=== PATIENT | male | born 1945 | race Caucasian/White ===

== ENCOUNTER 2016-09-20 12:32 | Inpatient (IN) | payer MEDICARE, OTHER ==
--- NOTE | ~2016-09-20 | CN ---
Consultation Report [facility] [address] [place] [place]. [address] NAME: ELVIA NO : 44 STATUS : ADM IN PAT#: [id number] AGE: 71 ADM/REG DATE : 09/20/16 MR#: [id number] REPORT SERV DATE: 09/21/16 DICTATED BY: OMAR DUGAN DATE: 09/21/16 REPORT STATUS : Draft TRANSCRIBED BY: MODJoey DATE: 09/21/16 GI CONSULTATION DATE OF CONSULTATION: 09/21/2016 REASON FOR CONSULTATION: Evaluation and management of nausea, vomiting, and diarrhea. HISTORY OF PRESENT ILLNESS: Mr. No is a very pleasant, 71-year-old, male patient, who is known to Dr. David Spaulding in the outpatient setting, who presented on the with a chief complaint of nausea, vomiting, and diarrhea. He has had this similar pattern multiple times here at [facility]. He was hospitalized in 04/2016 twice for this, as well as 03/2016, as well as 07/2015, as well as 03/2015. He has these episodes where he has nausea and vomiting, which is acute in onset as well as diarrhea. He becomes hypovolemic and hypotensive, comes into the hospital, gets IV fluids. Diarrhea stops. He is able to eat and tolerate. He goes home. He feels fine. Then, it recurs again. He has had a very extensive GI workup. He has had an EGD in 05/2016 with findings of Lujan's esophagus with no dysplasia on biopsies. His last colonoscopy was in 07/2015, completely normal exam. Microscopic biopsies were negative for any colitis. He has had a mesenteric ultrasound. He has had a small-bowel followthrough. He has had KUBs. He has had multiple CT scans. CT scan on the was nondiagnostic. He came in with a mildly elevated lactate at 2.7. His white count was normal at 8.5. Stool studies have been sent for Giardia and Cryptosporidium. Cultures and sensitivities are pending. Giardia and Cryptosporidium were negative. At present, he feels fine. He is going to the floor. He has been able to tolerate a clear-liquid diet. He has a history of adrenal insufficiency, on chronic replacement. At present, I have discussed with the patient. I am unsure of what else to offer from a GI perspective. We will complete stool studies for ova parasites as well as C. diff and WBCs, advance his diet, and follow his symptoms. PAST MEDICAL HISTORY: Positive for recurrent nausea, vomiting and diarrhea; prostate cancer; diabetes; Lujan's esophagus; COPD; GERD; obstructive sleep apnea; pacemaker placement; atrial fibrillation; cardiac ablation; chronic Eliquis; BPH; thrombocytopenia; rheumatoid arthritis, on chronic Orencia and prednisone; coronary artery disease, status post stenting; fibromyalgia; leg cellulitis; pneumonia; ischemic colitis with a history of partial colectomy; nephrolithiasis; fatty liver disease; compression fractures; left pleural effusion with a history of chest tube. SURGICAL HISTORY: Pacemaker, colectomy, pericardial window, cholecystectomy, knee surgery, and obstructive sleep apnea. ALLERGIES: TO SULFA AND ATIVAN. HOME MEDICATIONS: Eliquis, Soma, Lomotil, Lasix, [place], Creon, Prilosec, Zofran, potassium, prednisone, Lyrica, and Betapace. Consultation Report [address] [address] NAME: ELVIA NO : 44 STATUS : ADM IN [facility]#: [id number] AGE: 71 ADM/REG DATE : 09/20/16 MR#: [id number] REPORT SERV DATE: 09/21/16 DICTATED BY: OMAR DUGAN DATE: 09/21/16 REPORT STATUS : Draft TRANSCRIBED BY: JANIE DATE: 09/21/16 REVIEW OF SYSTEMS: A 10-point review of systems has been obtained with pertinent positives being addressed in the history of present illness. PERTINENT LABORATORY DATA: Procalcitonin was 14.14, on admission it was 20.81. Sodium 143, potassium 4.5, BUN 29, creatinine 0.96. Total bilirubin is 1.3, alkaline phosphatase is 62, ALT 22, AST 12, lipase 52. White blood cell count 10.2, hemoglobin 12.4, hematocrit 36.9, platelet count 88. PHYSICAL EXAMINATION: VITAL SIGNS: Temperature is 97.4, pulse 68, respirations 32, blood pressure of 124/78. NEURO: Reveals an alert, male, sitting up on the bedside with no focal deficits. GENERAL: Cooperative, no apparent distress. Awake, alert, and oriented x3. HEAD, EARS, EYES, NOSE, AND THROAT: Anicteric. Pupils are equal, round, and reactive to light and accommodation. Normocephalic and atraumatic. NECK: No JVD. No palpable nodes. LUNGS: Clear anteriorly. Normal respiratory effort exhibited. Equal expansion. CARDIOVASCULAR SYSTEM: Irregular rate and rhythm. ABDOMEN: Soft and round. Really very minimal tenderness throughout, without rebound or guarding. EXTREMITIES: No edema. Normal distal pulses. SKIN: Warm, dry, and intact. ASSESSMENT/PLAN: 1. Recurrent nausea, vomiting, and diarrhea. 2. Hypokalemia with dehydration. 3. Chronic atrial fibrillation, on Eliquis. 4. Lactic acidosis. 5. Type 2 diabetes. PLAN: 1. We will complete stool studies of C. diff, ova parasites, and WBCs. 2. Advance diet as tolerated. 3. We will discuss with Dr. Espinoza any other recommendations at present as a complete GI workup has been obtained. We will follow. TIMOTHY/JANIE Omar KENNETH Mora / [id number] Consultation Report [address] [address] NAME: ELVIA NO : 44 STATUS : ADM IN [facility]#: [id number] AGE: 71 ADM/REG DATE : 09/20/16 MR#: [id number] REPORT SERV DATE: 09/21/16 DICTATED BY: OMAR DUGAN DATE: 09/21/16 REPORT STATUS : Draft TRANSCRIBED BY: MODL DATE: 09/21/16 CC: Tequila Montana MD
--- NOTE | ~2016-09-20 | HP ---
History And Physical [id number] [place]. [address] NAME: ELVIA NO : 44 STATUS : ADM IN [facility]#: [id number] AGE: 71 ADM/REG DATE : 09/20/16 MR#: [id number] REPORT SERV DATE: 09/20/16 DICTATED BY: WASHINGTON REEVES DATE: 09/20/16 REPORT STATUS : Draft TRANSCRIBED BY: JANIE DATE: 09/20/16 DATE OF ADMISSION: 09/20/2016 CHIEF COMPLAINT: Nausea, vomiting, and diarrhea. HISTORY OF PRESENT ILLNESS: This is a 71 years old male with a past medical history of ischemic colitis status post colectomy; also rheumatoid arthritis, on chronic immunosuppressive medication/steroid with a history of intermittent nausea, vomiting, diarrhea, and hypotension presented with a 1-day history of nausea and vomiting and diarrhea. The patient denies any hematemesis. No melena. No hematochezia. He initially denied any abdominal discomfort. His stool Hemoccult was negative in the ER; however, upon arrival, found to be hypotensive with a blood pressure in the mid 70s. He was seen by GI nurse practitioner, given IV fluid bolusing, and hospitalist was called to admit the patient into the hospital. He follows up with GI physician, Dr. David Spaulding, and is on chronic Creon for pancreatic insufficiency. Also has a history of atrial fibrillation, on chronic Eliquis. He denies any chest pain. No shortness of breath. No subjective fever or chills. The patient states that this happened before periodically in the past. Per records, his last admission to the hospital was in 2014. REVIEW OF SYSTEMS: Please refer to HPI. PAST MEDICAL HISTORY: Atrial fibrillation status post ablation; coronary artery disease status post stent, status post pacer; prostate cancer, immunocompromised on chronic steroid; history of ischemic colitis; type 2 diabetes; GERD; COPD; obstructive sleep apnea on home CPAP; chronic thrombocytopenia; rheumatoid arthritis, on chronic steroid; pneumonia; pleural effusion. PAST SURGICAL HISTORY: Chest tube, pacemaker placement, pericardial effusion, colectomy, sleep apnea surgery, cardiac ablation, bilateral knee surgery, cholecystectomy. FAMILY HISTORY: Coronary artery disease. SOCIAL HISTORY: No tobacco, alcohol, or illicit drugs. Lives at home with . Ambulates without assistance. ALLERGIES: TO SULFA AND ATIVAN. HOME MEDICATIONS: Includes prednisone 5 mg p.o. daily; potassium chloride 30 mEq p.o. b.i.d.; Lyrica 150 mg p.o. b.i.d.; Florastor; sotalol 80 mg p.o. q.12 hours; Ambien 10 mg p.o. at bedtime.; Eliquis 5 mg p.o. b.i.d.; Soma 350 mg p.o. b.i.d.; Lomotil 2.5 mg p.o. t.i.d. p.r.n.; Lasix 40 mg p.o. every evening, 80 mg p.o. every morning; Creon 07706 units p.o., a.c.; Prilosec 40 mg p.o. daily; eye drops ophthalmic 4 times a day and at bedtime. PHYSICAL EXAMINATION: VITAL SIGNS: Temp of 98.6, initial blood pressure was 75/50 now is at 92/47, pulse of 85, History And Physical [address] [address] NAME: ELVIA NO : 44 STATUS : ADM IN [facility]#: [id number] AGE: 71 ADM/REG DATE : 09/20/16 MR#: [id number] REPORT SERV DATE: 09/20/16 DICTATED BY: WASHINGTON REEVES DATE: 09/20/16 REPORT STATUS : Draft TRANSCRIBED BY: JANIE DATE: 09/20/16 respirations of 16, and saturating 96% on room air. GENERAL: The patient is alert and oriented x3, currently in no distress. Answers all questions and follow commands appropriately. HEENT: Pupils equal, round, and reactive to light. Extraocular muscles are intact. Anicteric sclerae. Dry mucous membranes. CARDIOVASCULAR: S1, S2. No appreciated rubs or gallops. Irregularly regular. RESPIRATORY: Clear to auscultation bilaterally. No wheezes or crackles. No signs of tachypnea. ABDOMEN: Positive bowel sounds. Soft. No distention with very mild tenderness to palpation in the left lower quadrant. No rebound. Positive bowel sounds in all 4 quadrants. EXTREMITIES: With a positive edema of the bilateral lower extremities, hard to palpate dorsalis pedis pulse due to edema. SKIN: No appreciated new skin or rashes. NEURO: Cranial nerves 2 through 12 grossly intact. Moves all four extremities. No neuro focal deficits. LABS: ABG with a pH of 7.42, PCO2 of 32, PO2 of 91, FiO2 of 32. Sodium of 140, potassium 4.1, chloride 102, bicarb of 26, BUN of 38 with a creatinine of 1.63, with a glucose of 171. Albumin 3.3, alkaline phosphatase of 87, ALT of 30, AST of 15. T bilirubin of 0.8, lipase of 52. Ammonia of 18, lactate of 2.7. White count of 8.5 with a hemoglobin of 15.6, platelet count of 95,000. INR pending. UA pending. EKG with atrial fibrillation. Q waves in inferior leads. No ST elevation. EKG similar to EKG in 05/18/2016. ASSESSMENT AND PLAN: 1. Nausea, vomiting, and diarrhea. 2. Hypotension with adrenal insufficiency. 3. Acute renal failure. 4. Lactic acidosis. 5. Immunocompromised. 6. Chronic atrial fibrillation. 7. History of obstructive sleep apnea. 8. History of type 2 diabetes. The patient will be admitted. We will give bolusing of IV fluids. Also, we will start IV steroid for adrenal insufficiency. Also, we will closely monitor blood pressure and treat appropriately. The patient is low threshold for IMCU versus ICU if no response to treatment. Blood pressure has increased with the treatment so far. Therefore, we will closely monitor. Also, we will follow up with pending CT of the abdomen and pelvis with the patient's lactic acidosis, although clinically no signs of obstruction clinically, but will follow up with radiographic studies. Also, we will follow with pending labs. The patient will be admitted to Dr. Yip. [facility] History And Physical [address] [address] NAME: ELVIA NO : 44 STATUS : ADM IN [facility]#: [id number] AGE: 71 ADM/REG DATE : 09/20/16 MR#: [id number] REPORT SERV DATE: 09/20/16 DICTATED BY: WASHINGTON REEVES DATE: 09/20/16 REPORT STATUS : Draft TRANSCRIBED BY: JANIE DATE: 09/20/16 Washington Reeves M.D. / [id number] CC: MD Spencer Ruano M.D. Vijaykurmar Patel, M.D.
--- NOTE | ~2016-09-20 | DS ---
Discharge Summary [address] [place]. [address] NAME: ELVIA NO : 44 STATUS : DIS IN PAT#: [id number] AGE: 71 ADM/REG DATE : 09/20/16 MR#: [id number] REPORT SERV DATE: 09/23/16 DICTATED BY: ALEX ACOSTA DATE: 09/22/16 REPORT STATUS : Draft TRANSCRIBED BY: MODL DATE: 09/22/16 ADMISSION DATE: 09/20/2016 DISCHARGE DATE: 09/22/2016 DISCHARGE DIAGNOSES: 1. Acute nausea, vomiting, and diarrhea, recurrent episode. 2. Severe sepsis with hypotension on presentation, resolved. 3. Elevated procalcitonin level of unclear significance. 4. Mild metabolic acidosis. 5. Chronic atrial fibrillation with pacemaker and Eliquis. 6. Coronary artery disease. 7. Prostate cancer. 8. Obstructive sleep apnea. 9. Rheumatoid arthritis with chronic immunosuppressive therapy. 10.Chronic pancreatic insufficiency. CONSULTS: 1. GI. 2. Critical Care. PROCEDURES: None. HOSPITAL COURSE: This is a 71-year-old gentleman with history of recurrent episodes of acute nausea, vomiting, and diarrhea, and hospitalizations with apparent severe sepsis, who presented to the hospital with another episode. For details, please refer to H and P by Dr. Swartz. In summary, the patient was admitted and he was hypotensive enough to be admitted to the CCU. The patient actually never required any vasopressors and he responded well to IV fluids, as well as IV antibiotics, and stress dose steroids. The patient was able to be discharged from the ICU and transferred to the floor by the day of discharge. The patient was initially worked up for a septic shock, however, source of infection was never identified and all the cultures and stool studies were negative. This has been a recurrent theme for his hospitalizations, where patient will come to the hospital with apparent septic shock and within 24-48 hours, the patient shows rapid improvement with empiric antibiotics and IV fluids alone, and this was the same case again this time around. The patient does have elevated procalcitonin level up to 4 and on admission, it was as high as 20, however, that has also been the case in the past. Throughout these recurrent episodes requiring recurrent hospitalizations every few months or so, the patient was never really worked up to be positive for any bacterial infectious process. Today, the patient is completely back at baseline and he was very much eager to be discharged home. I did not feel the patient was ready to be discharged home just based on the fact the patient was requiring high-volume fluid resuscitation just a day before; however, the patient was almost threatening to leave A and given his recurrent episodes in the past that he was well managed conservatively, I felt that it may be okay for the patient to be discharged home slightly prematurely, but with very close outpatient followup. The patient is thus being discharged home with close outpatient followup instructions. Discharge Summary [address] [place]. [address] NAME: ELVIA NO : 44 STATUS : DIS IN PAT#: [id number] AGE: 71 ADM/REG DATE : 09/20/16 MR#: [id number] REPORT SERV DATE: 09/23/16 DICTATED BY: ALEX ACOSTA DATE: 09/22/16 REPORT STATUS : Draft TRANSCRIBED BY: JANIE DATE: 09/22/16 DISCHARGE MEDICATIONS: No changes. DISPOSITION: Home. FOLLOWUP: Please follow up with PCP within one week. The patient voiced understanding and he will see his PCP before one week is passed. The patient also promised to return to the hospital if the patient gets sick again. A total of 25 minutes was spent in coordinating this patient's discharge today. RIGOBERTO/JANIE Alex Acosta MD / [id number] CC: MD Spencer Abraham M.D.
[~2016-09-20 12:32] MED LIST: ACET500CAP PO; AFRIN15 NAS; AKWA TEARS OP; AMB10 PO; AMB5 PO; ASAB PO; BETAPACE80 PO; BP MEDICATION; C5 PO; CARDU4 PO; CARDURA XL8 MG PO; CARDURA8 MG PO; CATARACTIVE OPH; COREG12 PO; COREG6 PO; COUMADIN4 MG PO; COUMADIN6 MG PO; CREON DR 3,0001 EACH PO; CREON12000 UNT PO; CYMBALTA30 PO; ELIQUIS 5 MG TAB5 MG PO; FISH-EPA1000 MG PO; FLAG500TAB PO; FLORASTOR250 MG PO; FRESHKOTE OPH; GLUCOTRO10 PO; GLUCOTROL5 PO; IMOD PO; KDUR10 PO; KDUR20 PO; KLOR-CON 1010 MEQ PO; KLOR-CON M2020 MEQ PO; L40 PO; L80 PO; LEVAQUIN750 MG PO; LEVSINTAB PO; LOM PO; LOP25 PO; LORTAB10 PO; LYRICA150 MG PO; LYRICA75 PO; MUCINEX DM1 TA1 OR; NITROSTAT0.6 MG SL; NORCO1 TA1 PO; NORCO1 TA2 PO; NORCO1 TAB PO; NORV10 PO; NORV5 PO; ORENCIA; ORENCIA IV; P10 PO; P20 PO; P5 PO; PATANOL OPH; PLAVIX PO; PREDNISONE2.5 MG PO; PREV30 PO; PRILOSEC40 MG PO; PRIN20 PO; PROSCAR5 PO; PROTONIX PO; QUESLITE PO; SOMATAB PO; T PO; TAMIFLU PO; TIMOPTIC0.5 % OP; TRAVATAN Z0.004 % OPH; VIB100 PO; VICODINTAB PO; XALAT OPH; ZAROX2.5B PO; ZENPEP5000 UNIT; ZESTRIL20 MG PO; ZOCOR40 PO; ZOFRAN ODT4 MG PO; ZYRTEC ALLGY10 MG PO; [UNRECOGNIZED DRUG - REMARK]; [UNRECOGNIZED DRUG - REMARK]; [UNRECOGNIZED DRUG - REMARK] PO
[2016-09-20 12:56] LABS: BASOPHILS 0.1 %; BASOPHILS ABSOLUTE 0.01 10/3/uL (0.0-0.16); EOSINOPHILS 0.6 %; EOSINOPHILS ABSOLUTE 0.05 10/3/uL (0.0-0.53); IMMATURE GRANULOCYTES 0.4 %; IMMATURE GRANULOCYTES ABSOLUTE 0.03 10/3/uL (0.0-0.11); LYMPHOCYTES 10.9 %; LYMPHOCYTES ABSOLUTE 0.93 10/3/uL (0.67-4.30); MEAN CORPUS HGB CONC 34.7 g/dL (32.0-36.0); MEAN CORPUSCULAR HEMOGLOB 31.7 pg (26.0-34.0); MEAN CORPUSCULAR VOLUME 91.5 fL (80-100); MEAN PLATELET VOLUME 9.5 fL (9.2-13.0); MONOCYTES 13.8 %; MONOCYTES ABSOLUTE 1.18 10/3/uL (0.21-1.20); NEUTROPHILS 74.2 %; NEUTROPHILS ABSOLUTE 6.32 10/3/uL (2.02-8.40); PLATELET COUNT 95 10/3/uL (150-400); RBC DISTRIBUTION WIDTH 13.8 % (12.0-16.0); WHITE BLOOD CELLS 8.5 10/3/uL (4.5-10.5)
[2016-09-20 12:57] LABS: ER CBC TAT 0 Hrs 04 MinsNP; HEMOGLOBIN 15.6 g/dL (13.6-17.8); MANUAL DIFF NO %; RED CELL COUNT 4.92 10/6/uL (4.7-6.1)
[2016-09-20 13:10] LABS: A/G RATIO 1.1 (0.7-1.9); ALBUMIN 3.3 G/DL (3.5-5.0); CALCIUM, SERUM 8.6 MG/DL (8.5-10.4); CHLORIDE, SERUM 102 MMOL/L (96-112); CO2 (CARBON DIOXIDE) 26 MMOL/L (24-34); GLOBULIN 3.1 G/DL (2.5-4.1); POTASSIUM, SERUM 4.1 MMOL/L (3.5-5.3); SGOT(AST) 15 U/L (5-40); SGPT(ALT) 30 U/L (5-65); SODIUM, SERUM 140 MMOL/L (135-148); TOTAL BILIRUBIN 0.8 MG/DL (0-1.2); TOTAL PROTEIN 6.4 G/DL (6.0-8.5)
[2016-09-20 13:11] LABS: ALKALINE PHOSPHATASE 87 U/L (45-117); BUN (BLOOD UREA NITROGEN) 38 MG/DL (6-23); CREATININE 1.63 MG/DL (0.70-1.30); GFR AFRICAN AMERICAN 48 ML/MIN (>=60); GFR NON AFRICAN AMERICAN 41 ML/MIN (>=60); GLUCOSE, SERUM 171 MG/DL (60-99)
[2016-09-20] MEDS ORDERED: FRESHKOTE EYE (14:08)
[2016-09-20] MEDS ORDERED: PRILOSEC40 MG PO (14:08)
[2016-09-20] MEDS ORDERED: L40 PO (14:10)
[2016-09-20] MEDS ORDERED: LOM PO (14:10)
[2016-09-20] MEDS ORDERED: ELIQUIS 5 MG TAB5 MG PO (14:21)
[2016-09-20 14:48] LABS: ALLENS TEST Pos; BE (BASE EXCESS) -3.5 MEQ/L (0 +/- 2.5); CARBOXYHEMOGLOBIN 1.8 % (0-3); HCO3 (ACTUAL BICARBONATE) 19.9 MEQ/L (23-27); INSTRUMENT SERIAL # 8087; METHEMOGLOBIN 0.5 % (0-3); O2 CONTENT 18.7 VOL% (18-24); OPERATOR ID 14382; PCO2 (CO2 TENSION) 32 MMHG (35-45); PO2 (O2 TENSION) 91 MMHG (79-93); SAMPLE Arterial; pH 7.42 (7.37-7.43)
[2016-09-20 15:52] LABS: PROCALCITONIN 20.81 ng/mL (<0.5)
[2016-09-20 20:24] LABS: ASCORBIC ACID (UR NOT ORDER) NEG (NEG); BILIRUBIN, URINE NEGATIVE (NEG); KETONE, URINE TRACE MG/DL (NEG); LEUKOCYTE ESTERASE(NOT OR MOD (NEG); WBC (NOT ORDERED) (RFLEX) 69 (0-5)
[2016-09-20 21:22] LABS: INTERNATIONAL NORMAL RATI 1.4 UNITS (-); PARTIAL THROMBO TIME 28.6 SEC (22.5-37.2); PROTIME (NOT ORD) 16.8 SEC (12.0-14.5)
[2016-09-21 04:03] LABS: BASOPHILS 0 %; EOSINOPHILS 0 %; IMMATURE GRANULOCYTES 0.4 %; IMMATURE GRANULOCYTES ABSOLUTE 0.04 10/3/uL (0.0-0.11); LYMPHOCYTES 6.6 %; LYMPHOCYTES ABSOLUTE 0.67 10/3/uL (0.67-4.30); MEAN CORPUS HGB CONC 33.6 g/dL (32.0-36.0); MEAN CORPUSCULAR HEMOGLOB 31.5 pg (26.0-34.0); MEAN CORPUSCULAR VOLUME 93.7 fL (80-100); MEAN PLATELET VOLUME 9.6 fL (9.2-13.0); MONOCYTES 4.2 %; MONOCYTES ABSOLUTE 0.43 10/3/uL (0.21-1.20); NEUTROPHILS 88.8 %; NEUTROPHILS ABSOLUTE 9.07 10/3/uL (2.02-8.40); PLATELET COUNT 88 10/3/uL (150-400); RBC DISTRIBUTION WIDTH 13.9 % (12.0-16.0); RED CELL COUNT 3.94 10/6/uL (4.7-6.1); WHITE BLOOD CELLS 10.2 10/3/uL (4.5-10.5)
[2016-09-21 04:11] LABS: HEMATOCRIT 36.9 % (40.0-51.0); HEMOGLOBIN 12.4 g/dL (13.6-17.8)
[2016-09-21 04:12] LABS: MANUAL DIFF NO %
[2016-09-21 04:26] LABS: ALBUMIN 2.5 G/DL (3.5-5.0); ALKALINE PHOSPHATASE 62 U/L (45-117); BUN (BLOOD UREA NITROGEN) 29 MG/DL (6-23); CALCIUM, SERUM 7.9 MG/DL (8.5-10.4); CHLORIDE, SERUM 113 MMOL/L (96-112); CO2 (CARBON DIOXIDE) 22 MMOL/L (24-34); CREATININE 0.96 MG/DL (0.70-1.30); GFR AFRICAN AMERICAN 91 ML/MIN (>=60); GFR NON AFRICAN AMERICAN 79 ML/MIN (>=60); GLOBULIN 2.6 G/DL (2.5-4.1); GLUCOSE, SERUM 156 MG/DL (60-99); PHOSPHORUS, SERUM 3.4 MG/DL (2.5-4.5); POTASSIUM, SERUM 4.5 MMOL/L (3.5-5.3); SGOT(AST) 12 U/L (5-40); SGPT(ALT) 22 U/L (5-65); SODIUM, SERUM 143 MMOL/L (135-148); TOTAL BILIRUBIN 1.3 MG/DL (0-1.2); TOTAL PROTEIN 5.1 G/DL (6.0-8.5); ULTRASENSITIVE TSH 0.119 MCIU/ML (0.358-3.740)
[2016-09-22 05:27] LABS: BASOPHILS 0 %; EOSINOPHILS 0 %; HEMATOCRIT 36.5 % (40.0-51.0); HEMOGLOBIN 12.5 g/dL (13.6-17.8); IMMATURE GRANULOCYTES 0.1 %; IMMATURE GRANULOCYTES ABSOLUTE 0.01 10/3/uL (0.0-0.11); LYMPHOCYTES 7.2 %; LYMPHOCYTES ABSOLUTE 0.63 10/3/uL (0.67-4.30); MEAN CORPUS HGB CONC 34.2 g/dL (32.0-36.0); MEAN CORPUSCULAR HEMOGLOB 31.6 pg (26.0-34.0); MEAN CORPUSCULAR VOLUME 92.2 fL (80-100); MONOCYTES 3.4 %; NEUTROPHILS 89.3 %; NEUTROPHILS ABSOLUTE 7.86 10/3/uL (2.02-8.40); PLATELET COUNT 96 10/3/uL (150-400); RED CELL COUNT 3.96 10/6/uL (4.7-6.1); WHITE BLOOD CELLS 8.8 10/3/uL (4.5-10.5)
[2016-09-22 05:36] LABS: MANUAL DIFF NO %
[2016-09-22 05:47] LABS: ALBUMIN 2.6 G/DL (3.5-5.0); CALCIUM, SERUM 8.7 MG/DL (8.5-10.4); CHLORIDE, SERUM 112 MMOL/L (96-112); CO2 (CARBON DIOXIDE) 22 MMOL/L (24-34); CREATININE 0.91 MG/DL (0.70-1.30); GFR AFRICAN AMERICAN 97 ML/MIN (>=60); GFR NON AFRICAN AMERICAN 84 ML/MIN (>=60); PHOSPHORUS, SERUM 2.5 MG/DL (2.5-4.5); POTASSIUM, SERUM 3.8 MMOL/L (3.5-5.3); SODIUM, SERUM 144 MMOL/L (135-148)
[2016-09-22 05:50] LABS: BUN (BLOOD UREA NITROGEN) 21 MG/DL (6-23); GLUCOSE, SERUM 202 MG/DL (60-99)
[2016-09-22 08:16] LABS: PROCALCITONIN 4.63 ng/mL (<0.5)
[2016-09-22] MEDS ORDERED: MEDROLPAK4 PO (13:08)
== END 2016-09-22 15:35 | disposition home or self-care (01) | DRG 872 ==
LOC: ER 12:32 → CCU 17:21 → 4SO 09-21 15:21
PROVIDERS: Emergency Medicine; Internal Medicine Critical Care Medicine; Nurse Practitioner Family
DX: A41.9 Sepsis, unspecified organism (principal); N17.9 Acute kidney failure, unspecified; K55.9 Vascular disorder of intestine, unspecified; E87.2 Acidosis; I95.9 Hypotension, unspecified; E27.40 Unspecified adrenocortical insufficiency; D69.6 Thrombocytopenia, unspecified; K76.0 Fatty (change of) liver, not elsewhere classified; N39.0 Urinary tract infection, site not specified; R65.20 Severe sepsis without septic shock; Z99.81 Dependence on supplemental oxygen; M06.9 Rheumatoid arthritis, unspecified; E11.9 Type 2 diabetes mellitus without complications; K21.9 Gastro-esophageal reflux disease without esophagitis; G47.33 Obstructive sleep apnea (adult) (pediatric); J44.9 Chronic obstructive pulmonary disease, unspecified; I25.10 Atherosclerotic heart disease of native coronary artery without angina pectoris; Z95.5 Presence of coronary angioplasty implant and graft; Z85.46 Personal history of malignant neoplasm of prostate; Z98.890 Other specified postprocedural states; Z79.52 Long term (current) use of systemic steroids; Z82.49 Family history of ischemic heart disease and other diseases of the circulatory system; Z88.2 Allergy status to sulfonamides; Z88.5 Allergy status to narcotic agent; Z79.899 Other long term (current) drug therapy; K86.89 Other specified diseases of pancreas; I48.2 Chronic atrial fibrillation; Z79.01 Long term (current) use of anticoagulants; E87.6 Hypokalemia; E86.0 Dehydration; I12.9 Hypertensive chronic kidney disease with stage 1 through stage 4 chronic kidney disease, or unspecified chronic kidney disease; N18.9 Chronic kidney disease, unspecified
CPT/HCPCS: 36600; 71010; 74176; 80053; 80069; 81001; 82140; 82805; 82962; 83605; 83690; 83735; 84100; 84145; 84443; 85025; 85610; 85730; 87040; 87045; 87046; 87046-59; 87086; 87328; 87329; 87641; 87899; 87899-59; 93005; 96360; 97161-GP; 99285; A9270-GY; G8978-CH-GP; G8979-CH-GP; G8980-CH-GP; J1720; J2405; J2543; J2930; J3370; P9047

== ENCOUNTER 2017-02-09 11:28 | Emergency (ER) | payer MEDICARE, OTHER ==
[~2017-02-09 11:28] MED LIST changes: +FRESHKOTE EYE; +MEDROLPAK4 PO
[2017-02-09 13:48] LABS: BASOPHILS 0.1 %; BASOPHILS ABSOLUTE 0.01 10/3/uL (0.0-0.16); EOSINOPHILS 0.1 %; EOSINOPHILS ABSOLUTE 0.01 10/3/uL (0.0-0.53); HEMATOCRIT 38.1 % (40.0-51.0); HEMOGLOBIN 13.1 g/dL (13.6-17.8); IMMATURE GRANULOCYTES 1.4 %; IMMATURE GRANULOCYTES ABSOLUTE 0.12 10/3/uL (0.0-0.11); LYMPHOCYTES 14.3 %; MEAN CORPUS HGB CONC 34.4 g/dL (32.0-36.0); MEAN CORPUSCULAR HEMOGLOB 30.3 pg (26.0-34.0); MEAN PLATELET VOLUME 9.2 fL (9.2-13.0); MONOCYTES 5.7 %; MONOCYTES ABSOLUTE 0.48 10/3/uL (0.21-1.20); NEUTROPHILS 78.4 %; NEUTROPHILS ABSOLUTE 6.57 10/3/uL (2.02-8.40); RBC DISTRIBUTION WIDTH 14.7 % (12.0-16.0); RED CELL COUNT 4.33 10/6/uL (4.7-6.1); WHITE BLOOD CELLS 8.4 10/3/uL (4.5-10.5)
[2017-02-09 13:49] LABS: MANUAL DIFF NO %; PLATELET COUNT 197 10/3/uL (150-400)
[2017-02-09 13:52] LABS: ASCORBIC ACID (UR NOT ORDER) NEG (NEG); BILIRUBIN, URINE NEGATIVE (NEG); ER URINALYSIS TAT 0 Hrs 15 Mins; KETONE, URINE NEGATIVE (NEG); LEUKOCYTE ESTERASE(NOT OR NEG (NEG); NITRITE (URINE) NEG (NEG); WBC (NOT ORDERED) (RFLEX) 1 (0-5)
[2017-02-09 14:03] LABS: A/G RATIO 0.7 (0.7-1.9); ALBUMIN 2.7 G/DL (3.5-5.0); ALKALINE PHOSPHATASE 85 U/L (45-117); BUN (BLOOD UREA NITROGEN) 11 MG/DL (6-23); CHLORIDE, SERUM 104 MMOL/L (96-112); CO2 (CARBON DIOXIDE) 30 MMOL/L (24-34); CREATININE 0.82 MG/DL (0.70-1.30); GFR AFRICAN AMERICAN 102 ML/MIN (>=60); GFR NON AFRICAN AMERICAN 88 ML/MIN (>=60); GLOBULIN 3.7 G/DL (2.5-4.1); GLUCOSE, SERUM 119 MG/DL (60-99); POTASSIUM, SERUM 4.5 MMOL/L (3.5-5.3); SGOT(AST) 22 U/L (5-40); SGPT(ALT) 27 U/L (5-65); SODIUM, SERUM 142 MMOL/L (135-148); TOTAL BILIRUBIN 0.5 MG/DL (0-1.2); TOTAL PROTEIN 6.4 G/DL (6.0-8.5)
== END 2017-02-09 16:21 | disposition home or self-care (01) ==
LOC: ER 11:28
PROVIDERS: Physician Assistant
DX: M54.5 Low back pain (principal); I25.10 Atherosclerotic heart disease of native coronary artery without angina pectoris; I48.91 Unspecified atrial fibrillation; Z95.0 Presence of cardiac pacemaker; Z88.2 Allergy status to sulfonamides; Z88.8 Allergy status to other drugs, medicaments and biological substances; Z79.52 Long term (current) use of systemic steroids; Z79.899 Other long term (current) drug therapy; W01.0XXA Fall on same level from slipping, tripping and stumbling without subsequent striking against object, initial encounter
CPT/HCPCS: 72100; 80053; 81001; 85025; 93005; 99284; A9270-GY